=== PATIENT | female | born 1985 | race Caucasian/White ===

== ENCOUNTER 2018-07-12 16:27 | Emergency (ER) | payer BC ==
[2018-07-12 16:44] VITALS: BP 113/67
--- NOTE | 2018-07-12 17:16 | UC ---
Ear Complaint HPI - HPI Summary HPI Summary: Pt c/o sudden onset right ear pain and loss of hearing in right ear X 3-4 days. - History of Current Complaint Chief Complaint: UCGeneralIllness Stated Complaint: ST/RT EAR ACHE Time Seen by Provider: 07/12/18 17:09 Hx Obtained From: Patient Hx Last Menstrual Period: 06/26/18 ?: No Onset/Duration: Sudden Onset, Lasting Days, Still Present Severity Initially: Mild Severity Currently: Mild Pain Intensity: 0 Associated Signs/Symptoms: Positive: Hearing Loss, URI Symptoms - Allergies/Home Medications Allergies/Adverse Reactions: Allergies Allergy/AdvReac Type Severity Reaction Status Date / Time Penicillins Allergy Swelling Verified 07/12/18 16:44 Of Face,Lips,& Throat Home Medications: Home Medications Dextroamphetamine/Amphetamine [Adderall 20 mg Tablet] 1 tab PO DAILY 07/12/18 [ History Confirmed 07/12/18] Dextroamphetamine/Amphetamine [Adderall 30 mg-] 30 mg PO DAILY 07/12/18 [ History Confirmed 07/12/18] PMH/Surg Hx/FS Hx/Imm Hx Previously Healthy: Yes - Surgical History Surgical History: None - Family History Known Family History: Positive: Cardiac Disease - Social History Occupation: Employed Full-time Lives: With Family Alcohol Use: None Substance Use Type: None Smoking Status (MU): Light Every Day Tobacco Smoker Have You Smoked in the Last Year: No Review of Systems All Other Systems Reviewed And Are Negative: Yes Constitutional: Positive: Negative Skin: Positive: Negative Eyes: Positive: Negative ENT: Positive: Ear Ache Respiratory: Positive: Negative Cardiovascular: Positive: Negative Gastrointestinal: Positive: Negative Genitourinary: Positive: Negative Motor: Positive: Negative Neurovascular: Positive: Negative Musculoskeletal: Positive: Negative Neurological: Positive: Negative Psychological: Positive: Negative Is Patient Immunocompromised?: No Physical Exam Triage Information Reviewed: Yes Appearance: Well-Appearing Vital Signs: Initial Vital Signs Temp 100.1 F 07/12/18 16:40 Pulse 93 07/12/18 16:40 Resp 16 07/12/18 16:40 BP 113/67 07/12/18 16:40 Pulse Ox 100 07/12/18 16:40 Vital Signs Reviewed: Yes Eye Exam: Normal ENT Exam: Other ENT: Positive: TM bulging - right TM Dental Exam: Normal Neck exam: Normal Respiratory Exam: Normal Respiratory: Positive: No respiratory distress Cardiovascular Exam: Normal Musculoskeletal Exam: Normal Neurological Exam: Normal Psychological Exam: Normal Skin Exam: Normal Ear Complaint Course/Dx - Differential Dx/Diagnosis Differential Diagnosis/HQI/PQRI: Otitis Externa, Otitis Media, URI Provider Diagnosis: Acute pain of right ear, Acute serous otitis media of right ear Discharge - Sign-Out/Discharge Documenting (check all that apply): Patient Departure All imaging exams completed and their final reports reviewed: No Studies - Discharge Plan Condition: Stable Disposition: HOME Prescriptions: Fluticasone NASAL SPRAY 50MCG* [Flonase NASAL SPRAY 50MCG*] 2 spray BOTH NARES DAILY 7 Days #1 btl Patient Education Materials: Earache (ED), Serous Otitis Media (ED) Referrals: Nubia Olivo PA [Primary Care Provider] - If Needed - Billing Disposition and Condition Condition: STABLE Disposition: Home - Attestation Statements Provider Attestation: Per institutional requirements, I have reviewed the chart, however, I was not consulted specifically or made aware of this patient by the midlevel provider. I did not personally evaluate, interact with , or disposition this patient.
== END 2018-07-12 17:24 | disposition home or self-care (01) ==
LOC: UCCORT 16:27
DX: H65.01 Acute serous otitis media, right ear (principal); Z88.0 Allergy status to penicillin; F17.210 Nicotine dependence, cigarettes, uncomplicated
CPT/HCPCS: 99202; G0463

== ENCOUNTER 2019-08-19 18:49 | Emergency (ER) | payer BC ==
--- OUTSIDE RECORDS SUMMARY | 2019-08-19 18:55 | XMS REPORT | Continuity of Care Document ---
:1985 External Reference #:[id number] Author Name Nubia Olivo PA Address [address] [place] [address] Care Team Providers Name Role Phone Nubia Oilvo PA - Medical Care Team Information Imaging Account Manager [phone] Problems Active Problems Provider Date Attention deficit hyperactivity disorder, Nubia Olivo PA Onset: 10/12/2017 combined type Tobacco user Nubia Olivo PA Onset: 10/12/2017 Migraine Nubia Olivo PA Onset: 10/12/2017 Social History Type Date Description Comments Sex Unknown Tobacco Use Start: 08/01/02 Light tobacco smoker (10 or 1/2 ppd Has tried to fewer cigarettes/day) quit. ETOH Use Denies alcohol use Tobacco Use Start: Unknown Light tobacco smoker (10 or fewer cigarettes/day) Smoking Status Reviewed: 06/13/19 Light tobacco smoker (10 or fewer cigarettes/day) Allergies, Adverse Reactions, Alerts Active Allergies Reaction Severity Comments Date Penicillin 07/27/2017 Medications Active Medications SIG Qnty Indications Ordering Provider Date Zofran 1-2 tabs three 14tabs R11.0 Bela Ryan, 07/11/2019 4mg Tablets times a day as MD needed for nausea Buspirone HCL take one tab by 30tabs F41.9 Bela Ryan, 06/13/2019 5mg mouth every 6 MD Tablets hours as needed for anxiety Vyvanse 1 tab by mouth 30caps F90.2 Bela Ryan, 06/13/2019 40mg Capsules every day MD reference# [id number] Magnesium 1 tab by mouth G43.909 Dana Bales M.D. 10/12/2017 400mg every day Tablets Claritin One tab po every Unknown Tablets day B-12 1 tab by mouth Unknown 1000mcg Capsules every day Immunizations Description No Information Available Vital Signs Date Vital Result Comment 07/11/2019 1:01pm BP Systolic 142 mmHg BP Diastolic 80 mmHg BP Systolic Sitting Right Arm 130 mmHg Repeated after 10 min BP Diastolic Sitting Right Arm 70 mmHg Repeated after 10 min Body Temperature 97.7 F Heart Rate 95 /min Respiratory Rate 17 /min Height 63 inches 5'3" Weight 99.25 lb BMI (Body Mass Index) 17.6 kg/m2 BSA (Body Surface Area) 1.44 m2 [place] body weight in kilograms 52 kg O2 % BldC Oximetry 98 % 06/13/2019 1:54pm BP Systolic 112 mmHg BP Diastolic 62 mmHg Body Temperature 98.7 F Heart Rate 82 /min Respiratory Rate 18 /min Height 63 inches 5'3" Weight 101.38 lb BMI (Body Mass Index) 18.0 kg/m2 BSA (Body Surface Area) 1.45 m2 [place] body weight in kilograms 52 kg O2 % BldC Oximetry 98 % Results Description No Information Available Procedures Date Code Description Status 07/11/2019 15217 Brief Emotional/Behav Assessment W/ Scoring Doc Per Completed Standard Inst 06/13/2019 82919 Brief Emotional/Behav Assessment W/ Scoring Doc Per Completed Standard [facility] Medical Devices Description No Information Available Encounters Type Date Location Provider Dx Diagnosis Office Visit 07/11/2019 [facility] Nubia Olivo, F90.2 Attention- deficit 1:00p [place] XAVIER MCKEON hyperactivity disorder, combined type F41.9 Anxiety disorder, unspecified R11.0 Nausea Office Visit 06/13/2019 Kwesi Ortega.2 Attention-deficit 1:45p Medicine LINDA Armenta hyperactivity disorder, RD combined type F41.9 Anxiety disorder, unspecified Office Visit 03/07/2019 Kwesi Ortega.2 Attention-deficit 1:00p Medicine LINDA Armenta hyperactivity disorder, RD combined type R10.9 Unspecified abdominal pain Assessments Date Code Description Provider 07/11/2019 F90.2 Attention-deficit hyperactivity disorder, combined Nubia Olivo PA type 07/11/2019 F41.9 Anxiety disorder, unspecified Nubia Olivo PA 07/11/2019 R11.0 Nausea Nubia Olivo PA 06/13/2019 F90.2 Attention-deficit hyperactivity disorder, combined Nubia Olivo PA type 06/13/2019 F41.9 Anxiety disorder, unspecified Nubia Olivo PA 03/07/2019 F90.2 Attention-deficit hyperactivity disorder, combined Nubia Olivo PA type 03/07/2019 R10.9 Unspecified abdominal pain Nubia Olivo PA Plan of Treatment Future Appointment(s):10/10/2019 1:00 pm - Nubia Olivo PA at [facility] RD07/11/2019 - Nubia Olivo, PAF90.2 Attention-deficit hyperactivity disorder, combined typeComments:Just changed to Vyvanse. Patient notes some nausea. Advised to eat breakfast prior to taking medication. Light snacks and small lunch during the day. Call if this persists. Keep an eye on the BP. Take it once or twice a week at the pharmacy. Please call if you are getting elevated readings>130/90.F41.9 Anxiety disorder, unspecifiedComments: Med was not tried. Sy have improved on their own. Work on mediation/relaxation. F/U if symptoms return.R11.0 NauseaNew Medication:Zofran 4 mg - 1-2 tabs three times a day as needed for nauseaComments:Frequent small mealls and snacks. Zofran prn. Call if sy persist. Functional Status Functional Condition Comment Date Status Independent with all ADL's Active Mental Status Description No Information Available Referrals Description No Information Available
--- OUTSIDE RECORDS SUMMARY | 2019-08-19 18:55 | XMS REPORT ---
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 78193035 uteri Problem Family history Z80.41 Active 450368563 of malignant neoplasm of ovary Problem Family history Z83.2 Active 854808853 of diseases of the blood and blood-forming organs and certain disorders involving the immune mechanism Problem Family history Z80.49 Active 884777477 of malignant neoplasm of other genital organs Problem Dysmenorrhea, N94.6 Active 321336005 unspecified Problem Family history Z80.0 Active 685880949 of malignant neoplasm of digestive organs ALLERGIES No Information ENCOUNTERS Encounter Location Date Diagnosis [facility] [address] Apr, Polyp of corpus uteri OBGYN [facility], N84.0 ; D[place]menorrhea, [place] [id number] unspecified N94.6 ; Family history of malignant neoplasm of other genital organs Z80.49 and Family history of malignant neoplasm of breast Z80.3 [facility] 103 Apr, OBGYN [place] [id number] [facility] 103 Apr, [place] [id number] [facility] [place][Note 2][facility] 103 Dec, [place] [id number] [facility] [place]Note 2][facility] [address] Dec, [place]YN [place] [id number] [facility] [place][Note 2][facility] 103 Dec, [facility] ; [place], [place] [id number] unspecified N94.6 ; Family history of malignant neoplasm of other genital organs Z80.49 and Family history of malignant neoplasm of [facility] Z80.3 [facility] November, [facility] ; [place], [place] [id number] unspecified N94.6 and Family history of malignant neoplasm of other genital organs Z80.49 [facility] [place][Note 2][facility] 103 November, [facility] N84.[facility] ; [place], [place] [id number] unspecified N94.6 and Family history of malignant neoplasm of other genital organs Z80.49 [facility] [place][Note 2][facility] 103 November, [facility] ; [place], [place] [id number] unspecified N94.6 ; Family history of diseases of the blood and blood-forming organs and certain disorders involving the immune mechanism Z83.2 ; Family history of malignant neoplasm of breast Z80.3 ; Family history of malignant neoplasm of ovary Z80.41 ; Family history of malignant neoplasm of other genital organs Z80.49 and Encounter for screening mammogram for malignant neoplasm of breast Z12.31 [facility] [place][Note 2][facility] 103 Oct, [place] [id number] [facility] [place]Note 2[facility] 103 Oct, [place] [id number] [facility] 103 Oct, Family history of OBGYN [facility], malignant neoplasm of [place] [id number] breast Z80.3 ; Family history of malignant neoplasm of ovary Z80.41 and Family history of malignant neoplasm of other genital organs Z80.49 [facility] Sep, [place] [id number] [place] [facility] 103 Sep, Polyp of corpus uteri OBGYN [facility], N84.0 ; [place]orr[place], [place] [id number] unspecified N94.6 ; Family history of diseases of the blood and blood-forming organs and certain disorders involving the immune mechanism Z83.2 ; Family history of malignant neoplasm of breast Z80.3 ; Family history of malignant neoplasm of ovary Z80.41 and Family history of malignant neoplasm of other genital organs Z80.49 [facility] 103 Sep, [place] [id number] [facility] [place][Note 2][facility] 103 Sep, [place] [id number] [facility] 103 Sep, [place] [id number] [facility] [place]Note 2][facility] 103 Sep, [place] [id number] [facility] 103 Sep, [place] [id number] [facility] [address] [facility] Sep, Polyp of corpus uteri [address] [place], N84.0 ; [place], [place] [id number] unspecified N94.6 ; Family history of diseases of the blood and blood-forming organs and certain disorders involving the immune mechanism Z83.2 ; Family history of malignant neoplasm of breast Z80.3 ; Family history of malignant neoplasm of ovary Z80.41 and Family history of malignant neoplasm of other genital organs Z80.49 [place] [facility] 103 Sep, [place] [id number] [place] [facility] 103 Sep, [place] [id number] [place] [facility] 103 Sep, Abnormal findings on OBGYN [facility], diagnostic [place] [id number] other specified body structures R93.89 [place] [facility] 103 Sep, Abnormal findings on OBGYN [facility], diagnostic imaging [place] [id number] other specified body structures R93.89 [place] [facility] 103 Sep, Abnormal findings on OBGYN [facility], diagnostic imaging [place] [id number] other specified body structures R93.89 [place] [facility] 103 Aug, Abnormal findings on OBGYN [facility], diagnostic imaging of [place] [id number] other specified body structures R93.89 ; Family history of diseases of the blood and blood-forming organs and certain disorders involving the immune mechanism Z83.2 ; Tobacco abuse counseling Z71.6 and Family history of malignant neoplasm of breast Z80.3 IMMUNIZATIONS No Known Immunizations SOCIAL HISTORY Never Assessed REASON FOR REFERRAL FUNCTIONAL STATUS PLAN OF CARE VITAL SIGNS MEDICATIONS Unknown Medications PROCEDURES No Known procedures RESULTS No Results REASON FOR VISIT Appointment on Tuesday Insurance Providers [facility] Member Patient Patient Patient Patient Patient Subscriber Subscriber Subscriber Group Insurance Plan Plan Plan Plan ID Relationship Address Phone Name Date of ID Name Date of No Type Insurance Insurance Insurance Coverage to Subscriber Address Phone Name Dates [employer] [phone] [employer] self Mireya [id number] Blue [id number] Blue Pugh 5 Cross/Blue [place] Cross/Blue Shield [id number] Shield MEDICAL (GENERAL) HISTORY Type Description Date Medical History ADHD Surgical History No Surgical history information
--- OUTSIDE RECORDS SUMMARY | 2019-08-19 18:55 | XMS REPORT | Continuity of Care Document ---
:1985 External Reference #:[id number] Author Name Nubia Olivo PA Address [address] [place] [address] Care Team Providers Name Role Phone Nubia Olivo PA - Medical Care Team Information Public Safety Dispatcher [phone] Problems Active Problems Provider Date Attention deficit [...] (10 or fewer cigarettes/day) Smoking Status Reviewed: 08/15/19 Light tobacco smoker (10 or fewer cigarettes/day) Allergies, Adverse Reactions, Alerts Active Allergies Reaction Severity Comments Date Penicillin 07/27/2017 Medications Active Medications SIG Qnty Indications Ordering Provider Date Adderall 1 tab by mouth 60tabs F90.2 Bela Ryan, 07/14/2019 30mg Tablets twice a day Ref # [id number] Magnesium 1 tab by mouth G43.909 Dana Bales M.D. 10/12/2017 400mg every day Tablets Claritin One tab po every Unknown Tablets day B-12 1 tab by mouth Unknown 1000mcg Capsules every day History Medications Zofran 1-2 tabs three 14tabs R11.0 Bela Ryan, 07/11/2019 - 4mg times a day as 07/18/2019 Tablets needed for nausea Buspirone HCL take one tab by 30tabs F41.9 Bela Ryan, 06/13/2019 - 5mg mouth every 6 08/15/2019 Tablets hours as needed for anxiety Vyvanse 1 tab by mouth 30caps F90.2 Bela Ryan, 06/13/2019 - 40mg every day 07/14/2019 Capsules reference# [id number] Immunizations Description No Information Available Vital Signs Date Vital Result Comment 08/15/2019 1:26pm BP Systolic 118 mmHg BP Diastolic 68 mmHg Body Temperature 98.4 F Heart Rate 96 /min Respiratory Rate 18 /min Height 63 inches 5'3" Weight 100.38 lb BMI (Body Mass Index) 17.8 kg/m2 BSA (Body Surface Area) 1.44 m2 [place] body weight in kilograms 52 kg O2 % BldC Oximetry 98 % 07/11/2019 1:01pm BP Systolic 142 mmHg BP Diastolic 80 mmHg BP Systolic Sitting Right Arm 130 mmHg Repeated after 10 min BP Diastolic Sitting Right Arm 70 mmHg Repeated after 10 min Body Temperature 97.7 F Heart Rate 95 /min Respiratory Rate 17 /min Height 63 inches 5'3" Weight 99.25 lb BMI (Body Mass Index) 17.6 kg/m2 BSA (Body Surface Area) 1.44 m2 [place] body weight in kilograms 52 kg O2 % BldC Oximetry 98 % Results Description No Information Available Procedures Date Code Description Status 07/11/2019 37842 Brief Emotional/Behav Assessment W/ Scoring Doc Per Completed Standard Inst 06/13/2019 27642 Brief Emotional/Behav Assessment W/ Scoring Doc Per Completed Standard Inst Medical Devices Description No Information Available Encounters Type Date Location Provider Dx Diagnosis Office Visit 07/11/2019 Nubia Porter F90.2 Attention- deficit 1:00p [place] XAV[place] MCKEON hyperactivity disorder, combined type F41.9 Anxiety disorder, unspecified R11.0 Nausea Office Visit 06/13/2019 Kwesi Ortega.2 Attention-deficit 1:45p Medicine LINDA Armenta hyperactivity disorder, RD combined type F41.9 Anxiety disorder, unspecified Office Visit 03/07/2019 Kwesi Ortega.2 Attention-deficit 1:00p Medicine LINDA Armenta hyperactivity disorder, RD combined type R10.9 Unspecified abdominal pain Assessments Date Code Description Provider 08/15/2019 F90.2 Attention-deficit hyperactivity disorder, Nubia Olivo PA combined type 08/15/2019 S60.211A Contusion of right wrist, initial encounter Nubia Olivo PA 07/11/2019 F90.2 Attention-deficit hyperactivity disorder, Nubia Olivo, LINDA combined type 07/11/2019 F41.9 Anxiety disorder, unspecified Nubia Olivo PA 07/11/2019 R11.0 Nausea Nubia Olivo PA 06/13/2019 F90.2 Attention-deficit hyperactivity disorder, Nubia Olivo PA combined type 06/13/2019 F41.9 Anxiety disorder, unspecified Nubia Olivo PA 03/07/2019 F90.2 Attention-deficit hyperactivity disorder, Nubia Olivo PA combined type 03/07/2019 R10.9 Unspecified abdominal pain Nubia Olivo PA Plan of Treatment Future Appointment(s):11/14/2019 1:10 pm - Nubia Olivo PA at [facility]10/10/2019 1:00 pm - Nubia Olivo PA at [facility]08/15/2019 - Nubia Olivo, PAF90.2 Attention-deficit hyperactivity disorder, combined typeComments:Symptoms are under control. Continue with same treatment. Work on organization. Write down appointments and things you need to remember.Follow up:3 month PES60.211A Contusion of right wrist, initial encounterComments:LIkely contusion. ICe, rest, Use Motrin prn. Support w marina or splint as needed. Call if sy cont for more than 1 week. Functional Status Functional Condition Comment Date Status Independent with all ADL's Active Mental Status Description No Information Available Referrals Description No Information Available
--- OUTSIDE RECORDS SUMMARY | 2019-08-19 18:55 | XMS REPORT ---
:1985 Author Organization [facility] Address [address] [place] [address] Care Team Providers Name Role Phone Johana Dutton Unavailable Unavailable PROBLEMS Type Condition ICD9-CM Code [id number] Code Onset Condition SNOMED Code Dates Status Problem Family history Z80.3 Active 553683159 of malignant neoplasm of breast Problem Tobacco abuse Z71.6 Active [id number] counseling Problem Abnormal R93.89 Active 464478446 findings on diagnostic imaging of other specified body structures Problem Polyp of corpus N84.0 Active 31394499 uteri Problem Family history Z80.41 Active 088201375 of malignant neoplasm of ovary Problem Family history Z83.2 Active 300778348 of diseases of the blood and blood-forming organs and certain disorders involving the immune mechanism Problem Family history Z80.49 Active 202082420 of malignant neoplasm of other genital organs Problem Dysmenorrhea, N94.6 Active 652410759 unspecified Problem Family history Z80.0 Active 001492164 of malignant neoplasm of digestive organs ALLERGIES No Information ENCOUNTERS Encounter Location Date Diagnosis [facility] 103 Apr, Polyp of corpus uteri OBGYN [facility], N84.0 ; Dysmenorrhea, [place] [id number] unspecified N94.6 ; Family history of malignant neoplasm of other genital organs Z80.49 and Family history of malignant neoplasm of breast Z80.3 [facility] 103 Apr, OBG[place], [place] [id number] [facility] 103 Apr, [place] [id number] [facility] [address] Dec, [place] [id number] [facility] Dec, [place] [id number] [facility] 103 Dec, [facility] ; [place], [place] [id number] unspecified N94.6 ; Family history of malignant neoplasm of other genital organs Z80.49 and Family history of malignant neoplasm of breast Z80.3 [facility] 103 November, [facility] ; [place], [place] [id number] unspecified N94.6 and Family history of malignant neoplasm of other genital organs Z80.49 [facility] 103 November, [facility] N84.0 ; [place], [place] [id number] unspecified N94.6 and Family history of malignant neoplasm of other genital organs Z80.49 [facility] 103 November, [facility] N84.0 ; [place], [place] [id number] unspecified N94.6 ; Family history of diseases of the blood and blood-forming organs and certain disorders involving the immune mechanism Z83.2 ; Family history of malignant neoplasm of breast Z80.3 ; Family history of malignant neoplasm of ovary Z80.41 ; Family history of malignant neoplasm of other genital organs Z80.49 and Encounter for screening mammogram for malignant neoplasm of breast Z12.31 [facility] [facility] 103 Oct, [place] [id number] [facility] 103 Oct, [place] [id number] [facility] 103 Oct, Family history of OBGYN [facility], malignant neoplasm of [place] [id number] breast Z80.3 ; Family history of malignant neoplasm of ovary Z80.41 and Family history of malignant neoplasm of other genital organs Z80.49 [facility] 103 Sep, [place] [id number] [facility] 103 Sep, [facility] N84.[facility] ; [place], [place] [id number] unspecified N94.6 ; Family history of diseases of the blood and blood-forming organs and certain disorders involving the immune mechanism Z83.2 ; Family history of malignant neoplasm of breast Z80.3 ; Family history of malignant neoplasm of ovary Z80.41 and Family history of malignant neoplasm of other genital organs Z80.49 [facility] 103 Sep, [place] [id number] [facility] 103 Sep, [place] [id number] [facility] 103 Sep, [place] [id number] [place] [facility] 103 Sep, [place] [id number] [place] [facility] 103 Sep, [place] [id number] [place] [facility] [address] [facility] Sep, Polyp of corpus uteri [address] [place], N84.0 ; [place], [place] [id number] unspecified N94.6 ; Family history of diseases of the blood and blood-forming organs and certain disorders involving the immune mechanism Z83.2 ; Family history of malignant neoplasm of breast Z80.3 ; Family history of malignant neoplasm of ovary Z80.41 and Family history of malignant neoplasm of other genital organs Z80.49 [place] [facility] 103 Sep, [place], [place] [id number] [facility] [facility] 103 Sep, [place] [id number] [place] [facility] 103 Sep, [facility] [place] [id number] other specified body structures R93.89 [place] [facility] 103 Sep, [facility] diagnostic [place] [id number] other specified body structures R93.89 [place] [facility] 103 Sep, [facility] [place] [id number] other specified body structures R93.89 [place] [facility] 103 Aug, [facility] diagnostic [place] [id number] other specified body structures R93.89 ; Family [...] procedures RESULTS No Results REASON FOR VISIT pt will call - [facility] 05/24/19 Insurance Providers [facility] Member Patient Patient Patient Patient Patient Subscriber Subscriber Subscriber Group Insurance Plan Plan Plan Plan ID Relationship Address Phone Name Date of ID Name Date of No Type Insurance Insurance Insurance Coverage to Subscriber Address Phone Name Dates [employer] [phone] [employer] self Mireya [id number] Blue Pugh 5 Cross/Blue [place] Cross/Blue Shield [id number] Shield MEDICAL (GENERAL) HISTORY Type Description Date Medical History ADHD Surgical History No Surgical history information
[2019-08-19 19:07] VITALS: BP 125/65
--- NOTE | 2019-08-19 19:29 | UC ---
Hand/Wrist HPI - HPI Summary HPI Summary: 34-year-old female who slipped and fell on 3 steps today injuring her right lower back, right wrist, right proximal forearm. She denies hitting her head and denies any neck pain. She was ambulatory immediately. - History Of Current Complaint Chief Complaint: UCUpperExtremity Stated Complaint: SP FALL-RT WRIST/ARM PAIN,BACK PAIN Time Seen by Provider: 08/19/19 19:00 Hx Obtained From: Patient Hx Last Menstrual Period: 08/05/18 ?: No Onset/Duration: Sudden Onset Severity Initially: Moderate Severity Currently: Mild Pain Intensity: 6 Character Of Pain: Dull, Aching Aggravating Factor(s): Movement Alleviating Factor(s): Rest Associated Signs And Symptoms: Positive: Negative - Allergies/Home Medications Allergies/Adverse Reactions: Allergies Allergy/AdvReac Type Severity Reaction Status Date / Time Penicillins Allergy Swelling Verified 08/19/19 18:58 Of Face,Lips,& Throat Home Medications: Home Medications Acetaminophen [Tylenol Extra Strength] 1,000 mg PO Q6H PRN 08/19/19 [History Confirmed 08/19/19] Fluticasone NASAL SPRAY 50MCG* [Flonase NASAL SPRAY 50MCG*] 2 spray BOTH NARES DAILY PRN 08/19/19 [History Confirmed 08/19/19] Naproxen Sodium [Naproxen 220 mg] 220 mg PO BID PRN 08/19/19 [History Confirmed 08/19/19] PMH/Surg Hx/FS Hx/Imm Hx Previously Healthy: Yes - Surgical History Surgical History: None - Family History Known Family History: Positive: Cardiac Disease - Social History Occupation: Employed Full-time Lives: With Family Alcohol Use: None Substance Use Type: None Smoking Status (MU): Light Every Day Tobacco Smoker Type: Cigarettes Amount Used/How Often: 1/2 ppd Length of Time of Smoking/Using Tobacco: 18 yrs Have You Smoked in the Last Year: No Review of Systems All Other Systems Reviewed And Are Negative: Yes Musculoskeletal: Positive: Other: - Patient complains of mild right lower back pain however she states it's only mild and she is able to walk without difficulty and move. She complains of a bruise to the right proximal forearm and mild pain with flexion extension of her right wrist. She did not catch her fall with her hands. Is Patient Immunocompromised?: No Physical Exam Triage Information Reviewed: Yes Appearance: Well-Appearing, No Pain Distress, Well-Nourished Vital Signs: Initial Vital Signs Temp 99 F 08/19/19 19:02 Pulse 86 08/19/19 19:02 Resp 16 08/19/19 19:02 BP 125/65 08/19/19 19:02 Pulse Ox 100 08/19/19 19:02 Vital Signs Reviewed: Yes Eyes: Positive: Conjunctiva Clear Neck: Positive: Supple, Nontender - C-spine nontender, No Lymphadenopathy Respiratory: Positive: Chest non-tender - Chest wall nontender, Lungs clear, Normal breath sounds, No respiratory distress, No accessory muscle use Cardiovascular: Positive: RRR, No Murmur, Pulses Normal, Brisk Capillary Refill Abdomen Description: Positive: Nontender, No Organomegaly, Soft. Negative: CVA Tenderness (R), CVA Tenderness (L), Distended, Guarding, Hepatomegaly, Splenomegaly Bowel Sounds: Positive: Present Musculoskeletal: Positive: Strength Intact, ROM Intact, No Edema, Other: - Good peripheral pulses, neuro sensation and capillary refill. Right wrist is nontender on palpation, navicular is nontender, no erythema, bruising, swelling or deformity. Patient states she only feels mild wrist pain when she flexes and extends her wrist. Right proximal forearm has one small bruise approximately 1.0 cm in diameter with minimal tenderness on palpation. No deformity, erythema or swelling is noted. She has full range of motion of her arm and elbow. Right lower back has minimal tenderness on palpation to the paraspinal muscle area, no bruising, erythema, swelling or deformity is noted. Negative straight leg raise. Reflexes +1 at the knees bilaterally. Neurological: Positive: Alert, Muscle Tone Normal Psychological Exam: Normal Skin Exam: Normal Skin: Positive: Other - See above notes. Hand/Wrist Course/Dx - Course Course Of Treatment: Right forearm: Negative Right wrist: Negative Both above x-rays were interpreted by myself and Dr. Perez. X-ray report from August 20, 2019 is negative. The patient is comfortable here. - Differential Dx/Diagnosis Provider Diagnosis: Contusion of right forearm, Right wrist sprain, Lower back pain Discharge ED - Sign-Out/Discharge Documenting (check all that apply): Patient Departure All imaging exams completed and their final reports reviewed: No - Discharge Plan Condition: Good Disposition: HOME Patient Education Materials: Contusion in Adults (ED) Referrals: Lang Peralta MD [Medical Doctor] - Nubia Olivo PA [Primary Care Provider] - Additional Instructions: Elevate as much as possible, apply ice to the sore areas, Tylenol or Motrin for pain. Follow-up with the orthopedist if no improvement in 4 or 5 days. - Billing Disposition and Condition Condition: GOOD Disposition: Home
--- NOTE | 2019-08-20 09:25 | UC ---
- Progress Note Progress Note: Right wrist x-ray:FINDINGS: BONE DENSITY: Normal. BONES: There is no displaced fracture. JOINTS: There is no arthropathy. ALIGNMENT: There is no dislocation. SOFT TISSUES: Unremarkable. OTHER FINDINGS: None. IMPRESSION: NO ACUTE OSSEOUS INJURY. IF SYMPTOMS PERSIST, RECOMMEND REPEAT IMAGING. Right forearm x-ray:FINDINGS: BONE DENSITY: Normal. BONES: There is no displaced fracture. JOINTS: There is no arthropathy. ALIGNMENT: There is no dislocation. SOFT TISSUES: Unremarkable. OTHER FINDINGS: None. IMPRESSION: NO ACUTE OSSEOUS INJURY. IF SYMPTOMS PERSIST, RECOMMEND REPEAT IMAGING. Course/Dx - Diagnoses Provider Diagnoses: Contusion of right forearm, Right wrist sprain, Lower back pain Discharge ED - Sign-Out/Discharge Documenting (check all that apply): Post-Discharge Follow Up All imaging exams completed and their final reports reviewed: Yes - Discharge Plan Condition: Good Disposition: HOME Patient Education Materials: Contusion in Adults (ED) Referrals: Lang Peralta MD [Medical Doctor] - Nubia Olivo PA [Primary Care Provider] - Additional Instructions: Elevate as much as possible, apply ice to the sore areas, Tylenol or Motrin for pain. Follow-up with the orthopedist if no improvement in 4 or 5 days. - Billing Disposition and Condition Condition: GOOD Disposition: Home
== END 2019-08-19 19:33 | disposition home or self-care (01) ==
LOC: UCCORT 18:49
DX: S50.11XA Contusion of right forearm, initial encounter (principal); S63.501A Unspecified sprain of right wrist, initial encounter; M54.5 Low back pain; F17.210 Nicotine dependence, cigarettes, uncomplicated; Z88.0 Allergy status to penicillin; W01.0XXA Fall on same level from slipping, tripping and stumbling without subsequent striking against object, initial encounter; Y92.9 Unspecified place or not applicable
CPT/HCPCS: 99211; G0463